=== PATIENT | female | born 1965 | race Caucasian/White ===

== ENCOUNTER 2024-01-19 10:12 | Emergency (ER) | payer OTHER ==
[2024-01-19] MEDS ORDERED: ACETAMINOPHEN INJECTION 100 ML IVPB ONE (10:38)
[2024-01-19 10:55] VITALS: BP 97/64; PULSE 90; RESP 16; TEMP 98; BMI 22.1
[2024-01-19] MEDS: ACETAMINOPHEN 1000 MG/100 ML BAG IVPB ONE (11:14)
[2024-01-19] MEDS: LACTATED RINGERS SOLUTION 1000 ML INFUS.BAG IV ONE (11:14)
[2024-01-19 11:35] LABS: HEMOGLOBIN 9.5 G/dL (10.7-15.3); MCH 30.6 pg (25.7-33.7); MCHC 32.6 g/dl (32.0-36.0); MEAN CELL VOLUME 93.8 fl (80-96); MEAN PLT VOLUME 8.5 fl (7.5-11.1); PLATELET COUNT 313.4 10^3/uL (134-434); RBC 3.09 10^6/uL (3.60-5.2); RDW 14.8 % (11.6-15.6); WHITE BLOOD COUNT 16.4 10^3/uL (4.0-10.8)
[2024-01-19 11:49] LABS: ALBUMIN 4.2 g/dl (3.4-5.0); BILIRUBIN,TOTAL 0.4 mg/dl (0.2-1); CALCIUM 9.2 mg/dl (8.5-10.1); CREATININE 3.6 mg/dl (0.6-1.3); MAGNESIUM 2.6 mg/dL (1.8-2.4); POTASSIUM 3.6 mmol/L (3.5-5.1); TOT PROT 7.1 g/dl (6.4-8.2)
[2024-01-19 11:59] LABS: EPITHELIAL CELLS 0-5 /hpf
[2024-01-19 12:35] LABS: ANISOCYTOSIS 1+; PLATELET ESTIMATE ADEQUATE
== END 2024-01-19 12:56 | disposition home or self-care (01) ==
LOC: FER 10:12
PROC: 3E033NZ Introduction of Analgesics, Hypnotics, Sedatives into Peripheral Vein, Percutaneous Approach (ICD-10-PCS; principal; 2024-01-19)
DX: R11.2 Nausea with vomiting, unspecified (principal); R19.7 Diarrhea, unspecified; R10.9 Unspecified abdominal pain; Z20.822 Contact with and (suspected) exposure to COVID-19
CPT/HCPCS: 0241U-QW; 36415; 80053; 81003; 81015; 83735; 85027; 87086; 99284-25; J0131